=== PATIENT | female | born 1955 | race Caucasian/White ===

== ENCOUNTER → 2023-06-01 09:36 | Outpatient (REF) | payer MEDICARE, OTHER, SELFPAY | LOC: RCS 09:36 | PROVIDERS: ATTENDING PHYSICIAN Internal Medicine Cardiovascular Disease; FAMILY PHYSICIAN Nurse Practitioner Adult Health | DX: Z85.3 Personal history of malignant neoplasm of breast (principal); C56.9 Malignant neoplasm of unspecified ovary; Z01.810 Encounter for preprocedural cardiovascular examination | CPT/HCPCS: 93306; 93356 ==

== ENCOUNTER → 2023-11-05 08:28 | Outpatient (REF) | payer MEDICARE, OTHER, SELFPAY | LOC: WDC 08:28 | PROVIDERS: ATTENDING PHYSICIAN Nurse Practitioner Adult Health | DX: N64.4 Mastodynia (principal); Z98.82 Breast implant status | CPT/HCPCS: 76642 ==

== ENCOUNTER 2023-12-18 18:18 | Inpatient (IN) | payer MEDICARE, OTHER, SELFPAY ==
[2023-12-18] VITALS (10 sets, daily range): BP systolic 95–120; BP diastolic 52–78; BMI 21.1
--- NOTE | 2023-12-18 13:52 | ED.GENMED ---
History of Present Illness
<Alayna Davis PA-C - Last Filed: 12/18/23 19:11>
General
Chief Complaint: Abdominal Symptoms
Source: patient
Exam Limitations: none
Time Seen by Provider: 12/18/23 13:23
Nursing documentation reviewed up to this point in time: agreed with
History of Present Illness
History of Present Illness:
Patient is a 68-year-old female with history of ovarian cancer s/p debulking SHELIA/BSO/partial transverse colectomy/peritoneal stripping, and omentectomy presenting to the emergency department with worsening abdominal pain and concern for infected
incisional site. Patient is 13 days postop from laparoscopic to open adhesiolysis, repair of small bowel perforation, and washout performed in [place] during vacation. Patient was hospitalized for 8 days in [place]. She did return for staple
removal 3 days ago. Patient flew back to [facility] yesterday. Patient states she did have some swelling in her left upper abdomen immediately following procedure which seem to increase in size today and noted that it was red and very tender.
Patient states that she has had night sweats and felt chills. Patient denies any known fever. Patient saw her primary care this morning and was recommended she come to the emergency department.
Patient denies any urinary symptoms. States she is moving her bowels.
Past History
<Alayna Davis PA-C - Last Filed: 12/18/23 19:11>
Past History
ED Past Medical History: Cancer (Breast cancer 2020 (bilateral mastectomy, letrozole). Ovarian cancer 2022 (chemo: Carboplatin, Paclaitaxel, Palonosetron. Surgery to follow)) and Other (seasonal allergies)
ED Past Surgical History: Other (Bilateral mastectomy)
Social History
Tobacco: Non-smoker
Personal:
Living: with family
Review of Systems
<Alayna Davis PA-C - Last Filed: 12/18/23 19:11>
Review of Systems
Allergies reviewed?: Yes
All Other Systems: ROS reviewed and negative except as documented in HPI and ROS
Phy Exam
<Alayna Davis PA-C - Last Filed: 12/18/23 19:11>
Physical Exam
Physical Exam:
Vitals: Mildly tachycardic, temp of 100.1 F
General: Patient is well appearing, no acute distress. Nontoxic-appearing
Skin: Erythema as described below in left upper abdomen. Otherwise soft dry and intact.
Head: Normocephalic, atraumatic
Eyes: Sclera nonicteric. EOMs intact. No nystagmus.
Throat: Protecting airway
Neck: Normal ROM, no cervical spine tenderness, no meningismus
Cardiac: Regular rate and rhythm, no murmurs.
Pulm: Normal respiratory effort, no wheezes, rales, rhonchi heard on exam.
Abdomen: Mildly tender throughout with focal area of tenderness in left upper quadrant with 4 cm X 4 cm area of erythema and fluctuance surrounding laparoscopic incision site. Other abdominal incisions appear clean, dry, intact. No peritoneal
signs or rebound tenderness.
Extremities: No evidence of cyanosis or edema. Great distal pulses
Neuro: Grossly intact.
Psychiatric: Normal affect.
Course
<Alayna Davis PA-C - Last Filed: 12/18/23 19:11>
Orders/Labs/Results
Orders:
Orders
12/18/23 14:00
0.9% Sodium Chloride 1000 ml [Nss] 1,000 ml IV BOLUS
Piperacillin/Tazo 3.375 Gram [Zosyn] 3.375 gram in 50 ml IV NOW
12/18/23 14:01
CT Abd/Pel (IV only)-DH only Urgent
Comment: POD #13 from lap/open SBO repair/ washout
Reason For Exam: LUQ redness/pain/edema around incision, fever
12/18/23 14:15
Basic Metabolic Panel Urgent
Complete Blood Count/With Diff Urgent
Lactic Acid Q4H
Comment: CANCEL 2nd LACTIC ACID IF 1st LACTIC ACID IS LESS THAN 2
Blood Culture Urgent
DAMIÁN Source: Blood/Venous
Specimen Description:
12/18/23 14:24
Blood Culture Urgent
DAMIÁN Source: Blood/Venous
Specimen Description:
12/18/23 14:27
Acetaminophen [Tylenol] 650 mg PO NOW STA
12/18/23 17:46
SURGICAL CONSULT Routine
Consulting Provider: Linus Hopson
Was physician already notified: Yes
Reason for consult: intraabdominal abscess
12/18/23 17:51
Admit/Transfer Patient As Directed
Co-Sign Provider:
Level of Care: Inpatient admission
Assign to:: Medical/Surgical
Physician / Group: Hospitalist
Diagnosis: abdominal abscess
Reason for Hospitalization: abdominal abscess
Expected length of stay greater than two midnights?: Yes
ELOS- Estimated Length of Stay in days: 3
I certify the patient meets the requirements for IP care: Yes
PRN Pain Medication Management As Directed
May give lesser potent ordered pain med per pt: Yes
preference::
Protocol:: Medication orders for pain may be administered in a
manner that supports deferring to patient preference
when the pt is:
- Requesting an ordered lesser potent pain medication.
Least to most potent pain medications are defined
as: acetaminophen < NSAID < tramadol < opioids
(morphine, oxycodone, hydromorphone).
- Requesting a lesser dose of the same medication IF
ORDERED.
- Requesting a less intrusive route of administration
if both routes are prescribed by the provider (PO <
IV).
12/18/23 17:52
Code Status As Directed
Resuscitation Status: Full Code
12/18/23 17:59
[facility] CONSULT Routine
Consulting Provider: Davion Valiente
Was physician already notified: Yes
Reason for Consult/Procedure: abdominal abscess
Acknowledgement that appropriate orders are entered: N/A
Abnormal Lab Results
12/18/23
14:15
RBC 3.06 L 10^6/uL
(4.20-5.40)
Hgb 9.4 L g/dL
(12.0-16.0)
Hct 28.0 L %
(37.0-47.0)
Plt Count 458 H 10^3/uL
(130-400)
Absolute Neuts (auto) 7.3 H 10^3/uL
(1.4-6.5)
Absolute Lymphs (auto) 1.1 L 10^3/uL
(1.2-3.4)
Absolute Monos (auto) 0.8 H 10^3/uL
(0.1-0.6)
Neutrophils % 79.3 H %
(42.2-75.2)
Lymphocytes % 12.0 L %
(20.5-51.1)
Chloride 97 L mmol/L
(98-107)
BUN 21 H mg/dl
(7-17)
Glucose 111 H mg/dl
(70-99)
12/18/23 14:15
12/18/23 14:15
Vital Signs
Temp: 100.1 F
Initial and Last Documented VS:
Initial Vital Signs
Temp Pulse Resp BP Pulse Ox
98.4 F 110 20 120/78 98
12/18/23 12:31 12/18/23 12:31 12/18/23 12:31 12/18/23 12:31 12/18/23 12:31
Last Documented Vital Signs
Temp Pulse Resp BP Pulse Ox
100.1 F 83 26 95/52 96
12/18/23 13:55 12/18/23 18:00 12/18/23 18:00 12/18/23 18:00 12/18/23 18:00
<Dewayne Mcrae MD - Last Filed: 12/18/23 15:01>
Orders/Labs/Results
Orders:
Orders
12/18/23 14:00
0.9% Sodium Chloride 1000 ml [Nss] 1,000 ml IV BOLUS
Piperacillin/Tazo 3.375 Gram [Zosyn] 3.375 gram in 50 ml IV NOW
12/18/23 14:01
CT Abd/Pel (IV only)-DH only Urgent
Comment: POD #13 from lap/open SBO repair/ washout
Reason For Exam: LUQ redness/pain/edema around incision, fever
12/18/23 14:15
Basic Metabolic Panel Urgent
Complete Blood Count/With Diff Urgent
Lactic Acid Q4H
Comment: CANCEL 2nd LACTIC ACID IF 1st LACTIC ACID IS LESS THAN 2
Blood Culture Urgent
DAMIÁN Source: Blood/Venous
Specimen Description:
12/18/23 14:24
Blood Culture Urgent
DAMIÁN Source: Blood/Venous
Specimen Description:
12/18/23 14:27
Acetaminophen [Tylenol] 650 mg PO NOW STA
12/18/23 17:46
SURGICAL CONSULT Routine
Consulting Provider: Linus Hopson
Was physician already notified: Yes
Reason for consult: intraabdominal abscess
12/18/23 17:51
Admit/Transfer Patient As Directed
Co-Sign Provider:
Level of Care: Inpatient admission
Assign to:: Medical/Surgical
Physician / Group: Hospitalist
Diagnosis: abdominal abscess
Reason for Hospitalization: abdominal abscess
Expected length of stay greater than two midnights?: Yes
ELOS- Estimated Length of Stay in days: 3
I certify the patient meets the requirements for IP care: Yes
PRN Pain Medication Management As Directed
May give lesser potent ordered pain med per pt: Yes
preference::
Protocol:: Medication orders for pain may be administered in a
manner that supports deferring to patient preference
when the pt is:
- Requesting an ordered lesser potent pain medication.
Least to most potent pain medications are defined
as: acetaminophen < NSAID < tramadol < opioids
(morphine, oxycodone, hydromorphone).
- Requesting a lesser dose of the same medication IF
ORDERED.
- Requesting a less intrusive route of administration
if both routes are prescribed by the provider (PO <
IV).
12/18/23 17:52
Code Status As Directed
Resuscitation Status: Full Code
12/18/23 17:59
[facility] CONSULT Routine
Consulting Provider: Davion Valiente
Was physician already notified: Yes
Reason for Consult/Procedure: abdominal abscess
Acknowledgement that appropriate orders are entered: N/A
Abnormal Lab Results
12/18/23
14:15
RBC 3.06 L 10^6/uL
(4.20-5.40)
Hgb 9.4 L g/dL
(12.0-16.0)
Hct 28.0 L %
(37.0-47.0)
Plt Count 458 H 10^3/uL
(130-400)
Absolute Neuts (auto) 7.3 H 10^3/uL
(1.4-6.5)
Absolute Lymphs (auto) 1.1 L 10^3/uL
(1.2-3.4)
Absolute Monos (auto) 0.8 H 10^3/uL
(0.1-0.6)
Neutrophils % 79.3 H %
(42.2-75.2)
Lymphocytes % 12.0 L %
(20.5-51.1)
Chloride 97 L mmol/L
(98-107)
BUN 21 H mg/dl
(7-17)
Glucose 111 H mg/dl
(70-99)
12/18/23 14:15
12/18/23 14:15
Vital Signs
Initial and Last Documented VS:
Initial Vital Signs
Temp Pulse Resp BP Pulse Ox
98.4 F 110 20 120/78 98
12/18/23 12:31 12/18/23 12:31 12/18/23 12:31 12/18/23 12:31 12/18/23 12:31
Last Documented Vital Signs
Temp Pulse Resp BP Pulse Ox
100.1 F 83 26 95/52 96
12/18/23 13:55 12/18/23 18:00 12/18/23 18:00 12/18/23 18:00 12/18/23 18:00
<Alayna Davis PA-C - Last Filed: 12/18/23 19:11>
MDM/Problems Addressed
Differential Diagnosis Includes:
Not limited to: Intra-abdominal abscess, cellulitis, infected hematoma,
MDM/Problems Addressed:
Patient is a 68-year-old female with history as documented currently 13 days postop from laparoscopic to open adhesiolysis, repair of small bowel perforation and washout performed at outside hospital in [place] presenting today with worsening
abdominal pain and area of redness and tenderness in left upper abdomen concern for infection. Patient with night sweats and chills at home. Patient moving bowels, no urinary symptoms. Mildly tachycardic on arrival although normalized on my
assessment. She does have a low-grade temp of 100.1 F. Physical exam as above. Patient is conversational and nontoxic-appearing. Cardio/pulmonary assessment unremarkable. Abdomen mildly tender throughout with area of focal tenderness over left
upper quadrant incisional site with erythema and fluctuance. No purulent drainage from incision site. Other incisional sites appear C/D/I. No peritoneal signs. Patient perfusing well. High concern for postoperative infection including
intra-abdominal abscess, infected hematoma, abdominal wall abscess. Will check basic labs, lactic. Will draw blood cultures. Will check CT abdomen/pelvis with IV contrast. Will give fluids, start Zosyn. Will closely monitor and reassess.
Chronic conditions affecting care:
Ovarian cancer
Acute Exacerbation and/or Progression of Chronic Illness:
N/A
<Alayna Davis PA-C - Last Filed: 12/18/23 19:11>
*Radiology
Radiology exam reviewed: preliminary read by ED provider and radiology read reviewed
*Pulse Oximetry
Patient hypoxic: no
*EKG
Interpreted by ED Provider?: NA
*Program Development Manager Interpretation
Rate: normal
Interpretation: normal
Heart Rate: 86
*Critical Care Note
Total Time (30-74mins, 75-104mins- exclusive of procedures): Not Applicable
Data Reviewed
Review of Other/Old Records Reveals: Labs, Records (Records from [place]), Radiology Studies (CT scan performed at [facility]) and Operative Reports (Brief op note from 12/05/2023 for laparoscopic converted open adhesiolysis, small bowel
repair, washout)
<Alayna Davis PA-C - Last Filed: 12/18/23 19:11>
Patient Management
Discussion with other providers: Hospitalist and Cleaner Window (Dr. Hopson-General Surgery)
Escalation/DeEscalation of care consider admission/obs:
Admit for IV antibiotics, possible IR drain placement versus surgical intervention
<TUSHAR Pena Last Filed: 12/18/23 19:11>
Update Note
Update Note:
Update: Labs reviewed. Anemia noted with hemoglobin of 9.4. No leukocytosis. Chemistry without any clinically significant abnormalities. Lactic acid is normal. CT abdomen/pelvis report reviewed which does show a large abnormal fluid collection
suspicious for abscess from the left upper quadrant into the right abdomen. Patient will require admission to the hospital for IV antibiotics and possible surgical versus IR intervention. Did discuss case with general surgery and IR. Dr. Hopson
down at bedside to assess patient�did perform I&D of abscess of left upper quadrant. Plan for possible IR drain placement tonight versus tomorrow and continued IV antibiotics. Patient accepted to hospital service in stable condition. Patient seen
with attending physician.
ED Attending Note
<Alayna Davis PA-C - Last Filed: 12/18/23 19:11>
-
Portions of this chart may have been created with voice recognition software.� Occasional wrong word or��sound alike� substitutions may have occurred due to the inherent limitations of voice recognition software.
<Dewayne Mcrae MD - Last Filed: 12/18/23 15:01>
ED Attending Note
Patient seen and examined by attending physician: Yes
I performed the substantive portion of visit, reviewed & personally made and approve the management plan that is documented in note by myself or CAROLINE.: Yes
ED Attending Note:
Patient is a 68-year-old woman with a recent bowel obstruction in [place] presenting to the emergency department a lump in her abdomen. Patient states that she just came back from [place] yesterday. She was admitted for a bowel obstruction there.
A few days ago she did notice a lump in her abdomen. The surgeons there did evaluated. At that time it was diagnosed as a hematoma given that she was not having any fevers chills or associated redness. Patient states that she flew back and this
morning the area of redness was significant. It is extremely tender and more swollen. It is not draining. Vitals here notable for a temperature of 100.1. Abdominal exam does show about a 4 cm x 4 cm circular fluctuant abscess in the left upper
quadrant with surrounding erythema. No crepitus. Other surgical incisions are clean dry and intact. Concern for intra-abdominal abscess/superficial abscess. Less likely to be necrotizing soft tissue infection at this time. Will check blood work
and CT scan. Will give antibiotics. Anticipate admission if there is a intra-abdominal abscess that will require surgical washout.
Discharge Plan
Departure
Patient Disposition: Admit
Date of Disposition: 12/18/23
Time of Disposition: 17:25
Presentation/result/management discussed w/ accepting MD/DO: Hospitalist
Discharge Problem:
Intra-abdominal abscess
Interventions
Interventions:
*Risk Screen - Suicide Last Done: 12/18/23 12:31
*General Assessment Last Done: 12/18/23 12:31
*Neglect/Abuse Screening Last Done: 12/18/23 12:31
ED- Fall Risk Assessment Last Done: 12/18/23 13:51
*ED COVID-19 Vaccine History Last Done: 12/18/23 15:03
IO-Ziacto-Pcmeeptiki Assessment Last Done: 12/18/23 13:51
ED-Skin Assessment Last Done: 12/18/23 13:51
[2023-12-18 14:29] LABS: % Basophils 0.2 % (0-2); % Eosinophils 0.1 % (0-6); % Immature Granulocytes 0.2 % (0-0.5); % Monocytes 8.2 % (1.7-9.3); % Neutrophils 79.3 % (42.2-75.2); Absolute Lymphocytes 1.1 10^3/uL (1.2-3.4); Absolute Monocytes 0.8 10^3/uL (0.1-0.6); Absolute Neutrophils 7.3 10^3/uL (1.4-6.5); Hemoglobin 9.4 g/dL (12.0-16.0); Mean Corp Hgb Conc. 33.6 g/dL (33.0-37.0); Mean Corpuscular Hgb 30.7 pg (27.0-31.0); Mean Corpuscular Volume 91.5 fL (81.0-99.0); Mean Platelet Volume 9.4 fL (7.4-10.4); Nucleated Red Blood Cells % 0 %; Platelet Count 458 10^3/uL (130-400); Red Blood Cell Count 3.06 10^6/uL (4.20-5.40); Red Cell Dist. Width 12.7 % (11.5-14.5); White Blood Cell Count 9.3 10^3/uL (4.8-10.8)
[2023-12-18] MEDS: TYLENOL 650 MG PO (14:34)
[2023-12-18] MEDS: ZOSYN 50 IV ×2 (14:35→20:26)
[2023-12-18] MEDS: NSS 1000 IV (14:35)
[2023-12-18 14:50] LABS: Lactic Acid 0.8 mmol/L (0.7-2.0)
[2023-12-18 14:58] LABS: Blood Urea Nitrogen 21 mg/dl (7-17); Calcium 9.3 mg/dl (8.4-10.2); Carbon Dioxide 27 mmol/L (22-30); Chloride 97 mmol/L (98-107); Glucose 111 mg/dl (70-99); Sodium 136 mmol/L (135-145); eGFR > 60.00
--- NOTE | 2023-12-18 17:49 | HPS.HSE ---
Family Physician
-
Family Physician: Larissa Paez
Chief Complaint
-
red bulge on L upper abdomen
History of Present Illness
68yo F with PMHx of bilateral mastectomy, Hx of postOP b/l breast abscess after expanders, HLD, anxiety, BSO/SHELIA in June 2023 sent to the hospital by PCP when she pound red bulge on her abdomen . She had surgery in [place] for bowel obstruction [address] showed large intraabdominal abscess.
Medical History
Past Medical History
Past Medical History: Reports Other
Additional Past Medical History:
see HPI
Past Surgical History: Reports Other
Additional Past Surgical History:
See HPI
Social History
Tobacco: Non-smoker
Alcohol: None
Drug: None
Family History
Family History: Not pertinent
Allergies / Home Medications
Allergies reflects when Allergies were last updated in [employer].
Home Medications with original date entered in [employer]
Allergy/Medication List:
Allergies
Allergy/AdvReac Type Severity Reaction Status Date / Time
No Known Drug Allergies Allergy Unknown Verified 12/18/23 12:35
STERI STRIPS Allergy Rash Uncoded 12/18/23 12:35
Home Medications
cholecalciferol (vitamin D3) 25 mcg (1,000 unit) tablet 25 mcg PO QPM Supplement ##0 09/24/20
cyanocobalamin (vitamin B-12) 100 mcg tablet 100 mcg PO TUTHSA Supplement ##0 09/24/20
calcium carbonate (Calcium 600) 600 mg PO QPM 12/18/23
cetirizine 10 mg tablet (Zyrtec) 10 mg PO QPM 12/18/23
ezetimibe 10 mg tablet 10 mg PO QPM 12/18/23
fluticasone propionate 50 mcg/actuation nasal spray,suspension 1 spray intranasal DAILYPRN PRN congestion 12/18/23
letrozole 2.5 mg tablet 2.5 mg PO QPM 12/18/23
pravastatin 10 mg tablet 10 mg PO MOWEFR 12/18/23
therapeutic multivitamin 1 tab PO QPM 12/18/23
Review of Systems
-
History Source: Patient
A 12 point ROS was completed and negative except as noted: Yes
Physical Exam
Vital Signs
Vital Signs
Temp Pulse Resp BP Pulse Ox
100.1 F 86 19 101/55 95
12/18/23 13:55 12/18/23 16:00 12/18/23 16:00 12/18/23 16:00 12/18/23 16:00
Physical Exam
General: Well Developed, Well Nourished and No Apparent Distress
HEENT: NormoCephalic
Respiratory: Clear; No Wheezes, Rales or Rhonchi
Cardiac: S1/S2 and Regular Rhythm
GI: Soft, Non Tender, Non Distended and Other (Red bulge on L upper abdomen)
Musculoskeletal: No Clubbing, No Cyanosis and No Edema
Skin: Warm
Neuro: Awake, Alert, Oriented and AO x 3
Psych: Calm
Laboratory Results
-
12/18/23 14:15
12/18/23 14:15
Laboratory Results
Lactic Acid Cancelled 12/18/23 18:00
Total Bilirubin Cancelled 12/18/23 14:15
AST Cancelled 12/18/23 14:15
ALT Cancelled 12/18/23 14:15
Alkaline Phosphatase Cancelled 12/18/23 14:15
Data Reviewed
-
CT Scan: Report Reviewed by me
Lab Data: Labs Reviewed by me
Impression/Plan
-
A/P:
#postOP abdominal abscess abscess as a complication after recent surgery
#L upper abdominal wall phlegmon
Zosyn
Bcx
NPO until eval by IRAD for abdominal abscess drain
GenSx consult: for I&D of phlegmone and follow Cx
#Anxiety
#Neuropathy
cont home meds
#Anemia, Hx of B12 deficiency
postOP
follow CBC
anemia w/u for deficiencies
#thrombocytosis
reactive follow trend
#chronic transaminitis
known to patient
no cirrhosis on previous tests as per patient
Not tolerating tylenol
DVT ppx on hep
Full code
I have spent at least 58min reviewing chart, test results, communicating with consultants and providing direct patient care
--- NOTE | 2023-12-18 18:26 | CON.GS ---
Consultation
-
Date/Time Consultation Requested: 12/18/2023 5:30 PM
Date/Time Consultation Performed: 12/18/2023 5:30 PM
Requesting Provider: Emergency department
Performing Provider: Dr. Hopson
Reason for Consultation: Intra-abdominal fluid collections
Medical History
-
Chief Complaint: Left upper quadrant pain
History of Present Illness:
This is a 68-year-old female with a history of Breast cancer status post bilateral mastectomy with immediate reconstruction here at [facility]. More recently she was diagnosed with advanced ovarian cancer and had debulking SHELIA/BSO/partial
transverse colectomy/peritoneal stripping, and omentectomy at the [facility] in May 2023. She states that she did not have intra-abdominal chemotherapy at that time but did have 3 rounds of adjuvant chemotherapy after. Her follow-up scans have
shown no residual disease. She was at a wedding in [place] in mid November and shortly thereafter developed a nausea and abdominal pain. She went to a local hospital there where she was diagnosed with small bowel obstruction and looking at the CT
scan read there was some concern for closed-loop obstruction versus volvulus so she was taken to the OR on 12/05/2023 for laparoscopic converted to open exploratory laparotomy lysis of adhesions and primary repair of a iatrogenic small bowel
perforation with 3-0 PDS. The brief op note that I was able to see also mentions some serosal tears that were repaired with 3-0 Vicryl sutures. She was admitted in the hospital there for 8 days before being discharged. She saw her surgeon as an
outpatient and had some of her mario removed in 2 separate sessions. She states that she had a left upper quadrant 'lump' at the site of her laparoscopic incision which her surgeon told her was likely a hematoma and that there was nothing to do.
Overall she was for feeling well other than some right lower quadrant pain which she describes as an occasional 'stitch'. The patient denies Fever, Chest Pain, Shortness Of Breath, Nausea, Vomiting, changes in urinary and bowel habits,
unintentional weight loss. Her main complaint today is that over the past 24 hours her left upper quadrant lump has become very red and extremely tender to palpation. She was seen by her PCP endorsed down and directed to come into the ED for
evaluation.
Past Medical History
Past Medical History: Other (Breast cancer, ovarian cancer)
Past Surgical History: Other (Bilateral mastectomy with implant reconstruction, debulking SHELIA/BSO, peritoneal stripping, partial transverse colectomy.)
Social History
Tobacco: Non-Smoker
Alcohol: None
Drug: None
Personal: Single
Living: Alone
Employment: Employed
Family History
Family History: Reviewed & Not Pertinent
Allergies / Home Medications
Allergy/AdvReac Type Severity Reaction Status Date / Time
No Known Drug Allergies Allergy Unknown Verified 12/18/23 12:35
STERI STRIPS Allergy Rash Uncoded 12/18/23 12:35
�Medication �Instructions �Recorded �Confirmed �Type
cholecalciferol (vitamin D3) 25 25 mcg PO QPM Supplement ##0 09/24/20 12/18/23 History
mcg (1,000 unit) tablet
cyanocobalamin (vitamin B-12) 100 100 mcg PO TUTHSA Supplement ##0 09/24/20 12/18/23 History
mcg tablet
calcium carbonate (Calcium 600) 600 mg PO QPM 12/18/23 12/18/23 History
cetirizine 10 mg tablet (Zyrtec) 10 mg PO QPM 12/18/23 12/18/23 History
ezetimibe 10 mg tablet 10 mg PO QPM 12/18/23 12/18/23 History
fluticasone propionate 50 1 spray intranasal DAILYPRN PRN 12/18/23 12/18/23 History
mcg/actuation nasal congestion
spray,suspension
letrozole 2.5 mg tablet 2.5 mg PO QPM 12/18/23 12/18/23 History
pravastatin 10 mg tablet 10 mg PO MOWEFR 12/18/23 12/18/23 History
therapeutic multivitamin 1 tab PO QPM 12/18/23 12/18/23 History
Review of Systems
-
All other systems: Negative unless noted
A 10 point review of systems was completed, and was negative except as per HPI.
Physical Exam
Vital Signs
Temp Pulse Resp BP Pulse Ox
100.1 F 83 26 95/52 96
12/18/23 13:55 12/18/23 18:00 12/18/23 18:00 12/18/23 18:00 12/18/23 18:00
12/17/23 12/18/23 12/19/23
06:59 06:59 06:59
Actual Weight 54 kg
Lab Results
12/18/23 14:15
12/18/23 14:15
WBC 9.3 10^3/uL (4.8-10.8) 12/18/23 14:15
Hgb 9.4 g/dL (12.0-16.0) L 12/18/23 14:15
Hct 28.0 % (37.0-47.0) L 12/18/23 14:15
Plt Count 458 10^3/uL (130-400) H 12/18/23 14:15
Abs Immat Gran (auto) 0.0 10^3/uL (0-0.05) 12/18/23 14:15
Neutrophils % 79.3 % (42.2-75.2) H 12/18/23 14:15
Physical Exam
General: Well Developed
GI: Soft and Other (Minimally tender to palpation in the right upper, lower and left lower quadrants. She is tender to palpation in the left upper quadrant over her incision. There is a significant amount of erythema and induration around the port
site. The skin is also demarcated with a pen)
Data Reviewed
-
CT Scan: Image Personally Visualized and interpreted, Report Reviewed by me, Discussed with Physician, Discussed with Patient and Discussed with Family
Labs: Labs Reviewed by me, Discussed with Physician, Discussed with Patient and Discussed with Family
Total Time Spent with Patient (in minutes): 50
Assessment / Plan
-
This is a 68-year-old female with a history of breast cancer status postmastectomy and with reconstruction, ovarian cancer status post total abdominal hysterectomy/BSO/peritoneal stripping/partial transverse colectomy, and omentectomy who presented
to an outside hospital in [place] for an SBO and underwent on 12/05/2023 an lap to open for lysis of adhesions, and primary repair of an iatrogenic small bowel injury who presents with what appears to be a left upper quadrant port site infection as
well as to discrete intra-abdominal fluid collections.
My suspicion is that she had a postoperative incisional hematoma that has become infected potentially from an intra-abdominal abscess versus an enteric leak. Thankfully however she is clinically stable and her exam is reassuring.
N.p.o., IV fluids, IV antibiotics
Will perform a bedside incision and drainage of her left upper quadrant incisional abscess (see separate update note)
Follow-up wound cultures
Wound care consult for daily bedside packing changes of her left upper quadrant wound
IR consult for possible percutaneous drainage of the patient's intra-abdominal abscesses
Patient and agreeable to plan of care above. All questions answered.
General surgery will continue to follow.
I spent roughly 80 minutes in total for the care of this patient today including direct patient care and counseling, reviewing labs, imaging, coordination of care, as well as documentation.
--- NOTE | 2023-12-18 18:50 | W.PN.UPDATE ---
Update Note
Progress Note Update
Bedside incision and Drainage
A team time-out was performed confirming the location/laterality of the procedure, consent and allergies reviewed.
Location: Left upper quadrant
Dimensions: 2-1/2 x 0.5 cm x 1.5 cm
Local: 1% Lidocaine
Academic Advisor: RADHA VELASQUEZ
The skin was cleaned with alcohol and anesthetized with 10cc of 1% lidocaine. Her prior incision was incised with an 11 blade and dissection carried down through subcutaneous tissue. The abscess cavity was identified and thoroughly deloculated. The
wound was irrigated with sterile saline. Hemostasis was obtained. There was minimal blood loss. The skin was packed. Wound culture specimens were sent for aerobic and anaerobic. The patient tolerated the procedure well, discharge instructions
reviewed and all questions were answered.
[2023-12-18] MEDS: D5/0.45%NACL 1000 IV (20:25)
[2023-12-18] MEDS: ZETIA 10 MG PO (21:12)
[2023-12-18] MEDS: FEMARA 2.5 MG PO (21:13)
[2023-12-18] MEDS: HEPARIN 5000 UNITS SC (21:14)
--- NOTE | 2023-12-18 22:07 | PTCARENOTE ---
Received pt from ED at 1999. Pt AAOx3, VSS, ambulatory in room. Dressing to abdomen CDI. Pt denies pain at this time. Oriented to room, call banuelos and plan of care.
[2023-12-19] VITALS (10 sets, daily range): BP systolic 78–109; BP diastolic 54–65
[2023-12-19] MEDS: ZOSYN 50 IV ×4 (01:44→19:33)
[2023-12-19] MEDS: MOTRIN 200 MG PO ×3 (01:48→19:02)
[2023-12-19] MEDS: PROTONIX 40 MG PO (08:10)
[2023-12-19] MEDS: HEPARIN SC ×3 (08:14→23:19)
[2023-12-19] MEDS: PRAVACHOL 10 MG PO (08:14)
[2023-12-19 09:28] LABS: % Basophils 0.3 % (0-2); % Eosinophils 0.7 % (0-6); % Immature Granulocytes 0.4 % (0-0.5); % Lymphocytes 15.3 % (20.5-51.1); % Monocytes 9.6 % (1.7-9.3); % Neutrophils 73.7 % (42.2-75.2); Absolute Eosinophils 0.1 10^3/uL (0-0.7); Absolute Monocytes 0.6 10^3/uL (0.1-0.6); Absolute Neutrophils 4.9 10^3/uL (1.4-6.5); Hematocrit 27.9 % (37.0-47.0); Hemoglobin 9.4 g/dL (12.0-16.0); Mean Corp Hgb Conc. 33.7 g/dL (33.0-37.0); Mean Corpuscular Hgb 32.1 pg (27.0-31.0); Mean Corpuscular Volume 95.2 fL (81.0-99.0); Nucleated Red Blood Cells % 0 %; Platelet Count 444 10^3/uL (130-400); Red Blood Cell Count 2.93 10^6/uL (4.20-5.40); Red Cell Dist. Width 12.7 % (11.5-14.5); White Blood Cell Count 6.7 10^3/uL (4.8-10.8)
[2023-12-19 09:43] LABS: INR 1.12; PT 14.4 Sec (11.4-14.6)
[2023-12-19 12:28] LABS: ALT (SGPT) 59 U/L (0-35); AST (SGOT) 38 U/L (14-36); Albumin 3.5 g/dl (3.5-5.0); Alkaline Phosphatase 211 U/L (38-126); Blood Urea Nitrogen 13 mg/dl (7-17); Calcium 9.1 mg/dl (8.4-10.2); Carbon Dioxide 22 mmol/L (22-30); Chloride 102 mmol/L (98-107); Estimated Creatinine Clearance 70 ml/min; Glucose 83 mg/dl (70-99); Iron 36 ug/dl (37-170); Potassium 4.3 mmol/L (3.5-5.1); Sodium 139 mmol/L (135-145); Total Bilirubin 0.4 mg/dl (0.2-1.3); Total Protein 6.5 g/dl (6.3-8.2); eGFR > 60.00
--- NOTE | 2023-12-19 12:29 | CM ---
Patient seen bedside, initial assessment completed. Patient resides with her spouse in a multiple story home, primarily with first floor set up, two steps to enter. Patient denies use of DME, VN, or SNF history. Patient confirms PCP Larissa
Philippe, [facility], does not have prescription coverage. Patient denies any insecurities at home. CM will continue to follow for all discharge planning needs.
Plan; home with , no needs vs VN.
[2023-12-19 12:40] LABS: Percent Saturation 15 % (20-50); Total Iron Binding Capacity 230 ug/dl (265-497)
--- NOTE | 2023-12-19 12:56 | W.PN.HOSP.TC ---
Today's Communication/Plan
-
cont Abx pending wound Cx
XR abd with oral contrast and review by GenSx before starting diet
Assessment / Plan
Assessment / Plan
68yo F with PMHx of bilateral mastectomy, Hx of postOP b/l breast abscess after expanders, HLD, anxiety, BSO/SHELIA in June 2023 sent to the hospital by PCP when she pound red bulge on her abdomen . She had surgery in [place] for bowel obstruction [address] showed large intraabdominal abscess.
A/P:
#postOP abdominal abscess abscess as a complication after recent surgery
#L upper abdominal wall phlegmon
Zosyn
Bcx NTD
NPO until XR abd with omnipaq
IRAD: abdominal abscess drain placed on 12/19/23 - serous fluid
GenSx consult: for I&D of phlegmon and follow Cx
#Anxiety
#Neuropathy
cont home meds
#Anemia, most likely 2/2 acute disease with HOMERO exacerbated by recent Sx
follow CBC
#thrombocytosis
reactive follow trend
#chronic transaminitis
known to patient
no cirrhosis on previous tests as per patient
Not tolerating tylenol
DVT ppx on hep
Full code
I have spent at least 38min reviewing chart, test results, communicating with consultants and providing direct patient care
Anticipated Discharge: > 48 hours
Subjective/Interval History
-
Date of Service: December 19, 2023
Objective Data
-
Labs:
Laboratory Results
12/19/23 12/19/23
07:34 09:21
WBC 6.7
Hgb 9.4 L
Hct 27.9 L
Plt Count 444 H
PT 14.4
INR 1.12
Sodium 139
Potassium 4.3
Chloride 102
Carbon Dioxide 22
BUN 13
Creatinine 0.6
Glucose 83
Calcium 9.1
Total Bilirubin 0.4
AST 38 H
ALT 59 H
Alkaline Phosphatase 211 H
Vital Signs:
Vital Signs
Temp Pulse Resp BP Pulse Ox
98 F 80 20 105/60 97
12/19/23 12:40 12/19/23 12:40 12/19/23 12:40 12/19/23 12:40 12/19/23 12:40
I&O
12/18/23 12/19/23 12/20/23
06:59 06:59 06:59
Intake Total 600 / 600
Balance 600 / 600
Review of Systems
-
All other systems: Reviewed and negative
Constitutional: Reports No Symptoms
Physical Exam
-
General: No Apparent Distress
HEENT: Normocephalic
GI: Soft and Other (MITCH with serous fluid)
Neuro: Awake, Alert, Oriented and AO x 3
Psych: Calm
--- NOTE | 2023-12-19 13:34 | W.PN.UPDATE ---
Update Note
Progress Note Update
US guided abdominal fluid drainage catheter placed, 8 tanzanian. Fluid was highly loculated on US, drained about 10 cc of clear serous fluid. Sent for laboratory analysis.
[2023-12-19 14:10] LABS: Folate > 20.0 ng/ml (2.76-20); Vitamin B12 > 1000 pg/ml (239-931)
--- NOTE | 2023-12-19 15:05 | W.PN.GS2 ---
Today's Communication / Plan
-
IR for drain
ADAT post-procedure
Assessment / Plan
-
68F s/p SHELIA BSO and debulking for ovarian CA with ab wall abscess at lap port site and intra-abdominal fluid collections of unknown etiology
AFVSS, feeling better
No leukocytosis
CT with large intra-abdominal fluid collections of unclear etiology
Plan:
IR for drain to intra-ab collections
Daily packing changes to ab wall I&D site
OK to ADAT after drain procedure
IV abx
DVT ppx
All other care as per primary team
Subjective Data
-
Date of Service: December 19, 2023
AFVSS, feels much better after bedside I&D of ab wall abscess yesterday, denies n/v, denies pain
Objective Data
-
Intake and Output
12/18/23 12/19/23 12/20/23
06:59 06:59 06:59
Intake Total 600 / 600 110 / 110
Balance 600 / 600 110 / 110
Intake:
IV fluids (Total) 500 / 500
IV piggybacks 100 / 100 100 / 100
Amount instilled into Drain (
Total)
Right Abdomen Placed in IR
Other:
Number of approximated MODERATE 1
amounts of urine
Vital Signs
Temp Pulse Resp BP Pulse Ox
97.8 F 82 18 99/61 97
12/19/23 14:31 12/19/23 14:31 12/19/23 14:31 12/19/23 14:31 12/19/23 14:31
Lab Results
12/19/23 07:34
12/19/23 07:34
Calcium 9.1 mg/dl (8.4-10.2) 12/19/23 07:34
Total Bilirubin 0.4 mg/dl (0.2-1.3) 12/19/23 07:34
AST 38 U/L (14-36) H 12/19/23 07:34
ALT 59 U/L (0-35) H 12/19/23 07:34
Alkaline Phosphatase 211 U/L (38-126) H 12/19/23 07:34
Total Protein 6.5 g/dl (6.3-8.2) 12/19/23 07:34
Albumin 3.5 g/dl (3.5-5.0) 12/19/23 07:34
Physical Exam
-
Gen: NAD
Abd: soft, mild ttp about I&D site, no purulence, erythema or foul odor at the site
[2023-12-19] MEDS: FEMARA 2.5 MG PO (17:24)
[2023-12-19] MEDS: ZETIA 10 MG PO (17:24)
[2023-12-19] MEDS: D5/0.45%NACL IV (19:19)
[2023-12-20] MEDS: ZOSYN 50 IV ×4 (01:35→19:28)
[2023-12-20 07:41] VITALS: BP 108/66
[2023-12-20] MEDS: HEPARIN SC ×3 (07:51→23:51)
[2023-12-20] MEDS: PROTONIX 40 MG PO (07:51)
[2023-12-20 08:20] LABS: % Basophils 0.6 % (0-2); % Eosinophils 2.5 % (0-6); % Immature Granulocytes 0.4 % (0-0.5); % Lymphocytes 17.8 % (20.5-51.1); % Monocytes 10.3 % (1.7-9.3); % Neutrophils 68.4 % (42.2-75.2); Absolute Eosinophils 0.1 10^3/uL (0-0.7); Absolute Lymphocytes 0.9 10^3/uL (1.2-3.4); Absolute Monocytes 0.5 10^3/uL (0.1-0.6); Absolute Neutrophils 3.6 10^3/uL (1.4-6.5); Hematocrit 31.1 % (37.0-47.0); Hemoglobin 10.1 g/dL (12.0-16.0); Mean Corp Hgb Conc. 32.5 g/dL (33.0-37.0); Mean Corpuscular Hgb 30.1 pg (27.0-31.0); Mean Corpuscular Volume 92.8 fL (81.0-99.0); Mean Platelet Volume 9.7 fL (7.4-10.4); Nucleated Red Blood Cells % 0 %; Platelet Count 498 10^3/uL (130-400); Red Blood Cell Count 3.35 10^6/uL (4.20-5.40); Red Cell Dist. Width 12.4 % (11.5-14.5); White Blood Cell Count 5.2 10^3/uL (4.8-10.8)
--- NOTE | 2023-12-20 08:38 | W.PN.GS2 ---
Today's Communication / Plan
-
`
Assessment / Plan
-
68F s/p SHELIA BSO and debulking for ovarian CA with ab wall abscess/cellulitis at lap port site and postop intra-abdominal fluid collections
AFVSS
Doing well
No leukocytosis
Cultures are negative for growth to date -only WBCs noted on IR aspiration and I&D site
Plan: Okay for discharge from surgical perspective
Maintain IR drain through the weekend and if cultures remain negative for next week -patient can follow-up with Dr. Hopson/general surgery office for drain removal
Left upper quadrant I&D site -remove packing at next shower then no longer need to pack. Simply cover with Band-Aid or dry gauze dressing
Would cover with oral antibiotic for port site abscess/cellulitis for total course of 10 days (consider Augmentin for more broad-spectrum coverage given recent abdominal surgery)
Subjective Data
-
Date of Service: December 20, 2023
Patient seen and examined
Overall states that she is feeling well
minimal discomfort at drain site and where I&D was performed
Tolerating diet
Bowels moving yesterday
Objective Data
-
Intake and Output
12/19/23 12/20/23 12/21/23
06:59 06:59 06:59
Intake Total 600 / 600 1170 / 1170
Output Total
Balance 600 / 600 1160 / 1160
Intake:
Oral fluids 960 / 960
IV fluids (Total) 500 / 500
IV piggybacks 100 / 100 200 / 200
Amount instilled into Drain (
Total)
Right Abdomen Placed in IR
Output:
Drain Output (Total)
Right Abdomen Placed in IR
Other:
Number of approximated MODERATE 1 2
amounts of urine
Vital Signs
Temp Pulse Resp BP Pulse Ox
97.7 F 75 20 108/66 98
12/20/23 07:41 12/20/23 07:41 12/20/23 07:41 12/20/23 07:41 12/20/23 07:41
Lab Results
12/20/23 07:15
Calcium 9.1 mg/dl (8.4-10.2) 12/19/23 07:34
Total Bilirubin 0.4 mg/dl (0.2-1.3) 12/19/23 07:34
AST 38 U/L (14-36) H 12/19/23 07:34
ALT 59 U/L (0-35) H 12/19/23 07:34
Alkaline Phosphatase 211 U/L (38-126) H 12/19/23 07:34
Total Protein 6.5 g/dl (6.3-8.2) 12/19/23 07:34
Albumin 3.5 g/dl (3.5-5.0) 12/19/23 07:34
Physical Exam
-
NAD AAOx3
ABD: Soft, nondistended, tenderness only localized to I&D site and drain site, no rebound rigidity or guarding
IR drain with straw-colored serous fluid, nonpurulent
I&D site in left upper quadrant with receding erythema, no fluctuance, expected residual induration. Dressing/packing changed.
[2023-12-20 08:46] LABS: ALT (SGPT) 50 U/L (0-35); AST (SGOT) 35 U/L (14-36); Albumin 3.5 g/dl (3.5-5.0); Alkaline Phosphatase 208 U/L (38-126); Blood Urea Nitrogen 13 mg/dl (7-17); Calcium 9.1 mg/dl (8.4-10.2); Carbon Dioxide 24 mmol/L (22-30); Chloride 102 mmol/L (98-107); Estimated Creatinine Clearance 70 ml/min; Glucose 91 mg/dl (70-99); Potassium 4.2 mmol/L (3.5-5.1); Sodium 143 mmol/L (135-145); Total Bilirubin 0.4 mg/dl (0.2-1.3); Total Protein 6.7 g/dl (6.3-8.2); eGFR > 60.00
--- NOTE | 2023-12-20 09:06 | WOUNDNOTE ---
MAGDA RN NOTE: Confirmed with Dr. Putnam who saw patient today that wound consult not needed. Updated discharge instructions with wound care per surgeon, teaching done by Dr. Putnam. Patient to follow up with Surgical group upon discharge.
--- NOTE | 2023-12-20 10:09 | W.PN.HOSP.TC ---
Today's Communication/Plan
-
PAtient significantly improved, pain decreased, feeling better - cont Zosyn pending final Cx
Assessment / Plan
Assessment / Plan
68yo F with PMHx of bilateral mastectomy, Hx of postOP b/l breast abscess after expanders, HLD, anxiety, BSO/SHELIA in June 2023 sent to the hospital by PCP when she pound red bulge on her abdomen . She had surgery in [place] for bowel obstruction [address] showed large intraabdominal abscess.
A/P:
#postOP abdominal abscess abscess as a complication after recent surgery
#L upper abdominal wall phlegmon with cellulitis
Zosyn continue until final Cx resulted.
Bcx NTD
IRAD: abdominal abscess drain placed on 12/19/23 - serous fluid
GenSx consult: for I&D of phlegmon and follow Cx
#Anxiety
#Neuropathy
cont home meds
#Anemia, most likely 2/2 acute disease with HOMERO exacerbated by recent Sx
follow CBC
#thrombocytosis
reactive follow trend
#chronic transaminitis
known to patient
no cirrhosis on previous tests as per patient
Not tolerating tylenol
DVT ppx on hep
Full code
I have spent at least 38min reviewing chart, test results, communicating with consultants and providing direct patient care
Anticipated Discharge: 24 - 48 hours
Subjective/Interval History
-
Date of Service: December 20, 2023
Objective Data
-
Labs:
Laboratory Results
12/20/23
07:15
WBC 5.2
Hgb 10.1 L
Hct 31.1 L
Plt Count 498 H
Sodium 143
Potassium 4.2
Chloride 102
Carbon Dioxide 24
BUN 13
Creatinine 0.6
Glucose 91
Calcium 9.1
Total Bilirubin 0.4
AST 35
ALT 50 H
Alkaline Phosphatase 208 H
Vital Signs:
Vital Signs
Temp Pulse Resp BP Pulse Ox
97.7 F 75 20 108/66 98
12/20/23 07:41 12/20/23 07:41 12/20/23 07:41 12/20/23 07:41 12/20/23 07:41
I&O
12/19/23 12/20/23 12/21/23
06:59 06:59 06:59
Intake Total 600 / 600 1170 / 1170
Output Total
Balance 600 / 600 1160 / 1160
Review of Systems
-
History Source: Patient
All other systems: Reviewed and negative
Physical Exam
-
General: No Apparent Distress
HEENT: Normocephalic
Respiratory: Clear to Auscultation
Cardiac: Regular Rhythm
GI: Soft, Nontender, Nondistended and Other (MITCH with clear yellowish fluid)
Musculoskeletal: No Clubbing, No Cyanosis and No Edema
Skin: Other (redness of L upper abdomen)
Neuro: Awake, Alert, Oriented and AO x 3
Psych: Calm
--- NOTE | 2023-12-20 12:01 | CM ---
Patient seen bedside with spouse.
Patient with abdominal wound.
Wound care following.
Continues on IV anbx.
Plan: home, watch for possible HC needs.
[2023-12-20] MEDS: HEPARIN 5000 UNITS SC (15:00)
[2023-12-20 15:02] VITALS: BP 94/58
[2023-12-20] MEDS: FEMARA 2.5 MG PO (17:09)
[2023-12-20] MEDS: ZETIA 10 MG PO (17:10)
[2023-12-20 20:21] LABS: Hepatitis B Surface Antigen Negative (Negative)
[2023-12-20 20:40] LABS: Hepatitis B Core Ab, Total Negative (Negative); Hepatitis B Surface Antibody Negative; Hepatitis C Antibody Negative (Negative)
[2023-12-20] MEDS: MOTRIN 200 MG PO (22:44)
[2023-12-20 23:06] VITALS: BP 94/58
[2023-12-21] MEDS: ZOSYN 50 IV ×2 (02:10→07:35)
[2023-12-21] MEDS: PROTONIX 40 MG PO (07:34)
[2023-12-21] MEDS: PRAVACHOL 10 MG PO (07:34)
[2023-12-21] MEDS: HEPARIN 5000 UNITS SC (07:35)
[2023-12-21 08:02] VITALS: BP 129/66
[2023-12-21 08:45] LABS: % Basophils 0.4 % (0-2); % Eosinophils 1.8 % (0-6); % Immature Granulocytes 0.2 % (0-0.5); % Lymphocytes 24.6 % (20.5-51.1); % Monocytes 11.4 % (1.7-9.3); % Neutrophils 61.6 % (42.2-75.2); Absolute Eosinophils 0.1 10^3/uL (0-0.7); Absolute Lymphocytes 1.4 10^3/uL (1.2-3.4); Absolute Monocytes 0.6 10^3/uL (0.1-0.6); Absolute Neutrophils 3.4 10^3/uL (1.4-6.5); Hematocrit 34.1 % (37.0-47.0); Hemoglobin 11.5 g/dL (12.0-16.0); Mean Corp Hgb Conc. 33.7 g/dL (33.0-37.0); Mean Corpuscular Hgb 31.3 pg (27.0-31.0); Mean Corpuscular Volume 92.9 fL (81.0-99.0); Mean Platelet Volume 9.9 fL (7.4-10.4); Nucleated Red Blood Cells % 0 %; Platelet Count 523 10^3/uL (130-400); Red Blood Cell Count 3.67 10^6/uL (4.20-5.40); Red Cell Dist. Width 12.2 % (11.5-14.5); White Blood Cell Count 5.5 10^3/uL (4.8-10.8)
--- NOTE | 2023-12-21 09:18 | W.PN.GS2 ---
Addendum entered and electronically signed by Linus Hopson MD 12/21/23 10:14:
I saw and examined the patient independently.
The resident's note was reviewed and I agree with the note, assessment and plan except where noted below.
Comment:
Cultures no growth to date.
Okay for discharge from a surgical perspective.
Will need drain and wound care teaching. May need VNA set up.
Antibiotics d2/10
General surgery will sign off
Original Note:
Today's Communication / Plan
-
Cleared for Discharge from surgery perspective, follow up with Dr. Bender in 1week
Assessment / Plan
-
68F s/p SHELIA BSO and debulking for ovarian CA with ab wall abscess/cellulitis at lap port site and postop intra-abdominal fluid collections
Plan:
#IR Drain for Intraabdominal fluid collection
- Blood Cx NGTD, Wound Cx NGTD, WBC wnl, afebrile
- OK from surgical perspective to discharge with drain removal in office after the weekend
- F/u Dr. Bender next week
#Left upper quadrant port site abscess s/p I&D
- Changed packing today, continue packing per instructions and follow up OP with Dr. Bender
- Recommending 10d course PO Abx (Augmentin) for port site abscess
Subjective Data
-
No acute events overnight. Feeling well. No new abdominal pain, n/v, fevers or chills.
Objective Data
-
Intake and Output
12/20/23 12/21/23 12/22/23
06:59 06:59 06:59
Intake Total 1170 / 1170 1080 / 1080
Output Total 40 / 40
Balance 1160 / 1160 1040 / 1040
Intake:
Oral fluids 960 / 960 1080 / 1080
IV piggybacks 200 / 200
Amount instilled into Drain (
Total)
Right Abdomen Placed in IR
Output:
Drain Output (Total)
Right Abdomen Placed in IR
Other:
Number of approximated MODERATE 2 2
amounts of urine
Vital Signs
Temp Pulse Resp BP Pulse Ox
97.6 F 71 19 129/66 97
12/21/23 08:02 12/21/23 08:02 12/21/23 08:02 12/21/23 08:02 12/21/23 08:02
Lab Results
12/21/23 07:25
12/20/23 07:15
Calcium 9.1 mg/dl (8.4-10.2) 12/20/23 07:15
Total Bilirubin 0.4 mg/dl (0.2-1.3) 12/20/23 07:15
AST 35 U/L (14-36) 12/20/23 07:15
ALT 50 U/L (0-35) H 12/20/23 07:15
Alkaline Phosphatase 208 U/L (38-126) H 12/20/23 07:15
Total Protein 6.7 g/dl (6.3-8.2) 12/20/23 07:15
Albumin 3.5 g/dl (3.5-5.0) 12/20/23 07:15
Physical Exam
-
General: NAD.
Abdominal: Soft nondistended. MITCH drain output 20cc of serous fluid in 24 hours. RUQ I&D erythema much improved, mildly indurated & tender to palpation. No active pus or drainage.
--- NOTE | 2023-12-21 11:26 | W.PN.HOSP.TC ---
Today's Communication/Plan
-
dc
Assessment / Plan
Assessment / Plan
68yo F with PMHx of bilateral mastectomy, Hx of postOP b/l breast abscess after expanders, HLD, anxiety, BSO/SHELIA in June 2023 sent to the hospital by PCP when she pound red bulge on her abdomen . She had surgery in [place] for bowel obstruction [address] showed large intraabdominal abscess. GenSx provided bedside drain of phlegmon, Abx were started. Nexd day IRAD placed MITCH drain into intraabd abscess that drained clear fluid. Wound Cx showed no organism on gram stain and no preliminary
growth. As per agreement with GenSx - patient is medically stable to be started on oral Augmentin for cellulitis of the skin around phlegmon, and for outpatient follow up with GenSx for MITCH drain removal week after.
A/P:
#postOP abdominal abscess abscess as a complication after recent surgery
#L upper abdominal wall phlegmon with cellulitis
Zosyn continue until final Cx resulted.
Bcx NTD
IRAD: abdominal abscess drain placed on 12/19/23 - serous fluid
GenSx consult: for I&D of phlegmon and follow Cx
#Anxiety
#Neuropathy
cont home meds
#Anemia, most likely 2/2 acute disease with HOMERO exacerbated by recent Sx
follow CBC
#thrombocytosis
reactive follow trend
#chronic transaminitis
known to patient
no cirrhosis on previous tests as per patient
Not tolerating tylenol
DVT ppx on hep
Full code
I have spent at least 38min reviewing chart, test results, communicating with consultants and providing direct patient care
Anticipated Discharge: Today
Subjective/Interval History
-
Date of Service: December 21, 2023
Objective Data
-
Labs:
Laboratory Results
12/21/23
07:25
WBC 5.5
Hgb 11.5 L
Hct 34.1 L
Plt Count 523 H
Vital Signs:
Vital Signs
Temp Pulse Resp BP Pulse Ox
97.6 F 71 19 129/66 97
12/21/23 08:02 12/21/23 08:02 12/21/23 08:02 12/21/23 08:02 12/21/23 08:02
I&O
12/20/23 12/21/23 12/22/23
06:59 06:59 06:59
Intake Total 1170 / 1170 1080 / 1080
Output Total 40
Balance 1160 / 1160 1040 / 1040
Review of Systems
-
History Source: Patient
All other systems: Reviewed and negative
Physical Exam
-
HEENT: Normocephalic
Respiratory: Clear to Auscultation
GI: Soft, Nontender, Nondistended and Other (MITCH with clear fluid)
Rectal: Brown
Genito-urinary: No Costovertebral Tender
Musculoskeletal: No Clubbing, No Cyanosis and No Edema
Neuro: Awake, Alert, Oriented and AO x 3
Psych: Calm
--- NOTE | 2023-12-21 11:32 | W.DCSUMMARY ---
Discharge Summary
Discharge Data
Date of Admission: 12/18/23
Date of Discharge: 12/21/23
-
Pending Results: No
Hospital Course
68yo F with PMHx of bilateral mastectomy, Hx of postOP b/l breast abscess after expanders, HLD, anxiety, BSO/SHELIA in June 2023 sent to the hospital by PCP when she pound red bulge on her abdomen . She had surgery in [place] for bowel obstruction [address] showed large intraabdominal abscess. [facility] provided bedside drain of phlegmon, Abx were started. Nexd day IRAD placed MITCH drain into intraabd abscess that drained clear fluid. Wound Cx showed no organism on gram stain and no preliminary
growth. As per agreement with [facility] - patient is medically stable to be started on oral Augmentin for cellulitis of the skin around phlegmon, and for outpatient follow up with [facility] for MITCH drain removal week after.
I have spent at least 39min discharging the patient
A/P:
#postOP abdominal abscess abscess as a complication after recent surgery
#L upper abdominal wall phlegmon with cellulitis
#Anxiety
#Neuropathy
#Anemia, most likely 2/2 acute disease with HOMERO exacerbated by recent Sx
#thrombocytosis
#chronic transaminitis
Discharge Plan
-
Patient Disposition: Home (Routine Discharge)
Diet: Regular
Activity: No restrictions
Driving Restrictions: As prior to admission
Activity Restrictions/Additional Instructions:
Wound Care Instructions
Can shower at home, pull packing out in shower and cover with gauze change daily and as needed for drainage.
DRAIN CARE INSTRUCTIONS
General Information:
Drains help to keep fluid from collecting by removing the extra blood and fluid from under the skin. A drain is temporary. It stays in place until the drainage has slowed down or stopped. Your doctor or nurse will decide when each drain should be
removed: This is usually after each drain has 30cc or less in 24 hours for 2 days in a row. When this happens, you should call the [facility] to schedule an appointment with the nurses to have it/them removed. This is usually not painful
and only takes a few seconds.
How do I care for the drains at home?
Pin your drains to your clothing by using a safety pin through the plastic loop on the top of the bulb. If the drain is not attached to your clothing, it may pull out from under your skin. Also, a drain usually feels more comfortable when it�s
attached. To care for the drain at home, you will have to empty the drain, ``strip�� the drain tubing, and change the dressing if applicable. See the following pages for instructions on how to do this.
What problems may I have with my drain?
� The bulb is not compressed- The bulb may not be squeezed tightly enough, the plug may not be closed securely, or the tube has slipped out a bit and is leaking. Follow the instructions on how to empty the drain.
If the bulb remains expanded, then notify your doctor or nurse during business hours.
� No drainage or sudden decrease in amount of drainage- This is usually due to clots in the drain. Follow the instructions on how to strip the drain tubing.
� The tube accidentally falls out- If this happens, place a dry gauze dressing over the drain site and notify your doctor or nurse during business hours.
� Increased redness, swelling, or heat around the tube insertion site- This may be a sign of infection. Take your temperature: if it is higher than 101F or 38.8C, call your doctor or nurse immediately. Otherwise, notify your doctor or nurse during
business hours and keep the dressing clean and dry.
Post-Surgical Drain Care:
After surgery, you will have one or two drains, called a Jose-Seo (MITCH) drain, placed near the incision. This device collects fluid, under suction, from your surgical area. The drain promotes healing and recovery, and reduces the chance of
infection. The drain will be in place until the drainage slows enough for your body to reabsorb fluid on its own. While you are hospitalized the nursing staff will care for the drain and teach you to continue to do so at home.
How to Empty Your MITCH Drain
Note: Wash your hands thoroughly before emptying your drain(s).
� Have the plastic measuring cup from the hospital ready to collect and measure the drainage. Please measure the output at the same two times every 24 hours and record the amount.
� Unpin the drain from your clothing.
Open the top of the drain. Turn the drain upside down and squeeze the contents of the bulb into the measuring cup. Be sure to empty the bulb as completely as possible. Flush the contents in the toilet.
� Use the drain output log chart to record the amount of drainage twice a day or any time the bulb is full. Record the total for 24 hours for each drain you have.
� If you have more than one drain, remember to record the drainage from each drain separately.
� To prevent infection, do not let the stopper or top of the bottle touch the measuring cup or any other surface.
� Use one hand to squeeze all of the air from the drain. With the drain still squeezed, use your other hand to replace the top. This creates the suction necessary to remove the fluids from your body.
� Pin the drain back on your clothing to avoid pulling it out accidently.
� Wash your hands again. Remember to wash your hands before and after the procedure to reduce the risk of infection.
Stripping the Tube
Often the tube may become blocked with products of healing or clot. If you do not have drainage, then:
� Hold the tube near where it is inserted in to the skin with your one hand.
� Use the other hand to hold a pencil and gently squeeze the tubing with the pencil while moving it down toward the drain away from your skin. This forces the more sold material into the bulb for better drainage.
� Repeat as necessary to start the draining again.
Removal of the Tube
� The tube may be removed once a single tube output is less than 30cc (1 oz.) for 24 hours. Please call the office to arrange a time to come in to have the drain removed.
� Please call the office [phone] if the output becomes thicker or has a bad odor or if you have any questions or concerns
Please also call the office to schedule a follow-up appointment for early next week.
Referrals:
Larissa Paez CRNP [Family Provider] -
Linus Hopson MD [Active] - (Please follow-up with Dr. Hopson's office to confirm IR drain cultures are negative and timing of removal of IR drain that was placed in the hospital.)
Prescriptions:
New
amoxicillin-pot clavulanate 875-125 mg tablet
1 tab PO Q12H Qty: 14 0RF
Continued
cyanocobalamin (vitamin B-12) 100 mcg Tablet
100 mcg PO TUTHSA Qty: 0
cholecalciferol (vitamin D3) 25 mcg (1,000 unit) Tablet
25 mcg PO QPM Qty: 0
cetirizine [Zyrtec] 10 mg Tablet
10 mg PO QPM
therapeutic multivitamin Tablet
1 tab PO QPM
calcium carbonate [Calcium 600] 600 mg calcium (1,500 mg) Tablet
600 mg PO QPM
pravastatin 10 mg tablet
10 mg PO MOWEFR
letrozole 2.5 mg tablet
2.5 mg PO QPM
fluticasone propionate 50 mcg/actuation [place],Suspension
1 spray INTRANASAL DAILYPRN PRN (Reason: congestion)
ezetimibe 10 mg tablet
10 mg PO QPM
Discharge Orders:
Discharge Patient (As Directed); Ordered 12/21/23
Ordered By: Aniceto Huang
Discharge Date and Time
Print Language: CITIZEN OF [place]
--- NOTE | 2023-12-21 11:35 | CM ---
Patient seen bedside.
Patient OOB in chair, denies home care needs.
Spouse will assist with dressing change.
IMM completed.
Spouse will transport home.
Plan: home no needs.
== END 2023-12-21 12:57 | disposition home or self-care (01) | DRG 862 ==
LOC: 4 WEST ACU 18:18
PROVIDERS: Physician Assistant; Radiology Vascular & Interventional Radiology; ADMITTING PHYSICIAN Internal Medicine; CONSULT PHYSICIAN Surgery; EMERGENCY PHYSICIAN Student in an Organized Health Care Education/Training Program; FAMILY PHYSICIAN Nurse Practitioner Adult Health
PROC: 0J980ZZ Drainage of Abdomen Subcutaneous Tissue and Fascia, Open Approach (ICD-10-PCS; 2023-12-18)
PROC: 0W9G30Z Drainage of Peritoneal Cavity with Drainage Device, Percutaneous Approach (ICD-10-PCS; 2023-12-19)
DX: T81.43XA Infection following a procedure, organ and space surgical site, initial encounter (principal); K65.1 Peritoneal abscess; L02.211 Cutaneous abscess of abdominal wall; L03.311 Cellulitis of abdominal wall; T81.41XA Infection following a procedure, superficial incisional surgical site, initial encounter; F41.9 Anxiety disorder, unspecified; G62.9 Polyneuropathy, unspecified; D64.9 Anemia, unspecified; D75.839 Thrombocytosis, unspecified; E78.5 Hyperlipidemia, unspecified; R74.01 Elevation of levels of liver transaminase levels; Z90.710 Acquired absence of both cervix and uterus; Z90.13 Acquired absence of bilateral breasts and nipples; Z85.43 Personal history of malignant neoplasm of ovary; Z85.3 Personal history of malignant neoplasm of breast; Y83.8 Other surgical procedures as the cause of abnormal reaction of the patient, or of later complication, without mention of misadventure at the time of the procedure
CPT/HCPCS: 49406; 74177; 80048; 80053; 82607; 82728; 82746; 83540; 83550; 83605; 85025; 85610; 86704; 86706; 86803; 87015; 87040; 87070; 87205; 87340; 96361; 96374; 99152; 99153; 99285; C1729; C1769; Q9967

== ENCOUNTER → 2024-05-07 13:53 | Outpatient (REF) | payer MEDICARE, OTHER, SELFPAY | LOC: WDC 13:53 | PROVIDERS: ATTENDING PHYSICIAN Nurse Practitioner Adult Health | DX: R92.8 Other abnormal and inconclusive findings on diagnostic imaging of breast (principal) | CPT/HCPCS: 76642 ==

== ENCOUNTER 2024-08-16 17:03 | Emergency (ER) | payer MEDICARE, OTHER, SELFPAY ==
[2024-08-16 17:04] VITALS: BP 122/68
--- NOTE | 2024-08-16 18:34 | ED.GENMED ---
History of Present Illness
General
Chief Complaint: Skin Problem
Source: patient
Exam Limitations: none
Time Seen by Provider: 08/16/24 17:40
Nursing documentation reviewed up to this point in time: agreed with
History of Present Illness
History of Present Illness:
The patient is a very pleasant 69-year-old female who is undergoing IV chemotherapy for ovarian cancer. Patient had 2 different chemotherapies infused in an IV of her right hand yesterday at the [facility]. Patient reports that since then, the IV
site is slightly warm and red to the touch. Patient is concerned about a possible infection or blood clot to the area. Patient denies fevers and chills. She denies nausea and vomiting. The redness and swelling is contained to the top of her
right hand and does not extend to the wrist or forearm. Patient reports minimal soreness to the area of redness where the IV site was.
Past History
Past History
ED Past Medical History: Cancer (Breast cancer 2020 (bilateral mastectomy, letrozole). Ovarian cancer 2022 (chemo: Carboplatin, Paclaitaxel, Palonosetron. Surgery to follow)) and Other (seasonal allergies)
ED Past Surgical History: Other (Bilateral mastectomy)
Social History
Tobacco: Non-smoker
Alcohol: Other
Drug: None
Personal:
Living: with family
Employment: Other
Family History
Family History: Other
Review of Systems
Review of Systems
Allergies reviewed?: Yes
All Other Systems: ROS reviewed and negative except as documented in HPI and ROS
Constitutional: Reports no symptoms
EENT: Reports no symptoms
Respiratory: Reports no symptoms
Cardiac: Reports no symptoms
ABD/GI: Reports no symptoms
: Reports no symptoms
Musculoskeletal: Reports no symptoms
Skin: Reports other
Neurological: Reports no symptoms
Endocrine: Reports no symptoms
Hematologic/Lymphatic: Reports no symptoms
Psychiatric: Reports no symptoms
Phy Exam
Physical Exam
Physical Exam:
Physical Exam
General: no apparent distress, not acutely ill
Neck: supple.
Heart: s1/s2 regular rate and rhythm, no murmur. equal radial pulses.
Lungs: no acute respiratory distress. clear bilaterally
Abdomen: Soft, nontender
Neuro: alert and oriented. no focal neurological deficits. 5 out of 5 strength and equal sensation in bilateral upper extremities
Skin: Very mild localized erythema and slight ecchymoses of dorsal aspect of right hand. No sign of lymphangitis. No extension to wrist or forearm. Hand is soft without crepitus or any obvious swelling
Psychiatric: well kept. interactive and cooperative
Extremities: no edema. no calf tenderness. negative homans. good distal pulses
Course
Orders/Labs/Results
Orders:
Orders
08/16/24 18:05
US Periph Venous UPPER Ext RT Urgent
Comment:
Reason For Exam: right hand swellling after IV
08/16/24 19:26
Cephalexin Monohydrate [Keflex] 500 mg PO NOW STA
Vital Signs
Initial and Last Documented VS:
Initial Vital Signs
Temp Pulse Resp BP Pulse Ox
97.8 F 67 16 122/68 99
08/16/24 17:04 08/16/24 17:04 08/16/24 17:04 08/16/24 17:04 08/16/24 17:04
Last Documented Vital Signs
Temp Pulse Resp BP Pulse Ox
98 F 67 20 122/73 99
08/16/24 19:09 08/16/24 19:09 08/16/24 19:09 08/16/24 19:09 08/16/24 19:09
MDM/Problems Addressed
Differential Diagnosis Includes:
Ecchymoses over right hand due to IV placement yesterday, extravasation of medicine in soft tissue of right hand, cellulitis of right hand
MDM/Problems Addressed:
Patient presents with acute redness and pain over the area of IV site of right hand
Chronic conditions affecting care:
Patient could be immunocompromise due to chemotherapy
*Radiology
Radiology exam reviewed: radiology read reviewed
*Pulse Oximetry
Patient hypoxic: no
*EKG
Interpreted by ED Provider?: NA
*Bullard Operator Interpretation
Rate: Bullard Operator- N/A
*Critical Care Note
Total Time (30-74mins, 75-104mins- exclusive of procedures): Not Applicable
Update Note
Update Note:
There is no sign of deep space infection or gangrene of patient's hand. There is no sign of tenosynovitis or lymphangitis. Given that there is slight warmth and red around the IV site, decision made to start patient on Keflex
ED Attending Note
-
Portions of this chart may have been created with voice recognition software.� Occasional wrong word or��sound alike� substitutions may have occurred due to the inherent limitations of voice recognition software.
Discharge Plan
Departure
Patient Disposition: Home (Routine Discharge)
Date of Disposition: 08/16/24
Time of Disposition: 19:26
Patient with high blood pressure during this ER visit?: No
Condition: Good
Covid-19: Not Applicable
Discharge Problem:
Cellulitis of hand, right
Instructions: Cellulitis (Skin Infection), Adult (DC)
Prescriptions:
New
cephalexin 500 mg capsule
500 mg PO BID Qty: 13 0RF
No Action
cyanocobalamin (vitamin B-12) 100 mcg Tablet
100 mcg PO TUTHSA Qty: 0
cholecalciferol (vitamin D3) 25 mcg (1,000 unit) Tablet
25 mcg PO QPM Qty: 0
cetirizine [Zyrtec] 10 mg Tablet
10 mg PO QPM
therapeutic multivitamin Tablet
1 tab PO QPM
calcium carbonate [Calcium 600] 600 mg calcium (1,500 mg) Tablet
600 mg PO QPM
pravastatin 10 mg tablet
10 mg PO MOWEFR
letrozole 2.5 mg tablet
2.5 mg PO QPM
fluticasone propionate 50 mcg/actuation [place],Suspension
1 spray INTRANASAL DAILYPRN PRN (Reason: congestion)
ezetimibe 10 mg tablet
10 mg PO QPM
amoxicillin-pot clavulanate 875-125 mg tablet
1 tab PO Q12H Qty: 14 0RF
Referrals:
Larissa Paez CRNP [Family Provider, General]
Interventions
Interventions:
*Risk Screen - Suicide Last Done: 08/16/24 19:09
*General Assessment Last Done: 08/16/24 19:09
*Neglect/Abuse Screening Last Done: 08/16/24 19:09
*ED- Fall Risk Assessment Last Done: 08/16/24 19:09
*ED COVID-19 Vaccine History Last Done: 08/16/24 19:09
ED-Skin Assessment Last Done: 08/16/24 19:09
Discharge Date and Time
Print Language: NEPALESE
[2024-08-16 19:09] VITALS: BP 122/73
[2024-08-16] MEDS: KEFLEX 500 MG PO (19:34)
== END 2024-08-16 19:40 | disposition home or self-care (01) ==
LOC: EMR 17:03
PROVIDERS: EMERGENCY PHYSICIAN Emergency Medicine; FAMILY PHYSICIAN Nurse Practitioner Adult Health
DX: L03.113 Cellulitis of right upper limb (principal); R22.31 Localized swelling, mass and lump, right upper limb; C56.9 Malignant neoplasm of unspecified ovary; Z85.3 Personal history of malignant neoplasm of breast
CPT/HCPCS: 99284; 93971

== ENCOUNTER → 2024-12-03 13:38 | Outpatient (REF) | payer MEDICARE, OTHER, SELFPAY | LOC: RCS 13:38 | PROVIDERS: ATTENDING PHYSICIAN Nurse Practitioner; FAMILY PHYSICIAN Nurse Practitioner Adult Health | DX: C56.9 Malignant neoplasm of unspecified ovary (principal) | CPT/HCPCS: 93306; 93356 ==

== ENCOUNTER 2025-01-08 05:29 | Emergency (ER) | payer MEDICARE, OTHER, SELFPAY ==
[2025-01-08 05:32] VITALS: BP 120/85
[2025-01-08 06:12] VITALS: BP 117/64
--- NOTE | 2025-01-08 06:15 | ED.GENMED ---
History of Present Illness
General
Chief Complaint: Nose Bleed
Source: patient
Exam Limitations: none
Time Seen by Provider: 01/08/25 05:57
History of Present Illness
History of Present Illness:
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 Currently on chemotherapy for ovarian CA. No other abnormal bleeding. No fever chills or other complaints
Past History
Past History
ED Past Medical History: Cancer (Breast cancer 2020 (bilateral mastectomy, letrozole). Ovarian cancer 2022 (chemo: Carboplatin, Paclaitaxel, Palonosetron. Surgery to follow)) and Other (seasonal allergies)
ED Past Surgical History: Other (Bilateral mastectomy)
Social History
Tobacco: Non-smoker
Alcohol: Other
Drug: None
Personal:
Living: with family
Employment: Other
Family History
Family History: Other
Review of Systems
Review of Systems
All Other Systems: Not applicable
Constitutional: Denies fever
Phy Exam
Physical Exam
Physical Exam:
GENERAL: Alert and oriented in no apparent distress
EYE: Orbits normal.
NECK: Supple
ENT: Pharynx without erythema. No posterior blood. Pincher in place over the nares. Appears to have likely source of the right septum. There is areas of superficial pimple appearance focal of a superficial vein and a small amount of blood along
the septum.
LUNGS: No distress
NEUROLOGICAL: Alert and oriented , grossly non-focal
SKIN: Warm and dry, no unusual bruising
PSYCH: Normal and appropriate interaction.
Course
Orders/Labs/Results
Orders:
Orders
01/08/25 06:05
Complete Blood Count/With Diff Urgent
Manual Differential Urgent
01/08/25 06:54
Add On- LAB Urgent
Tests Added?: manual diff
Abnormal Lab Results
01/08/25
06:05
WBC 1.7 L* 10^3/uL
(4.8-10.8)
RBC 3.62 L 10^6/uL
(4.20-5.40)
Hct 36.5 L %
(37.0-47.0)
MCV 100.8 H fL
(81.0-99.0)
MCH 33.4 H pg
(27.0-31.0)
Abs Neuts (Manual) 0.2 L* 10^3/uL
(1.4-6.5)
Segmented Neutrophils 15 L %
(42-75)
Lymphocytes (Manual) 77 H %
(20-51)
01/08/25 06:05
Vital Signs
Initial and Last Documented VS:
Initial Vital Signs
Temp Pulse Resp BP Pulse Ox
97.9 F 104 20 120/85 96
01/08/25 05:32 01/08/25 05:32 01/08/25 05:32 01/08/25 05:32 01/08/25 05:32
Last Documented Vital Signs
Temp Pulse Resp BP Pulse Ox
97.9 F 74 20 117/64 97
01/08/25 05:32 01/08/25 06:12 01/08/25 05:32 01/08/25 06:12 01/08/25 06:21
Procedures
Nosebleed
Drug treatment: Epinephrine
Treatment: Silver nitrate cautery
Post treatment bleeding: none- good control
MDM/Problems Addressed
Differential Diagnosis Includes:
Epistaxis likely right nares. Currently not bleeding. Trying to avoid packing secondary to her leukopenia. Area cauterized. Will observe.
*Pulse Oximetry
SaO2: 97
Oxygen Mode of Delivery: Room air
Patient hypoxic: no (97)
*Critical Care Note
Total Time (30-74mins, 75-104mins- exclusive of procedures): Not Applicable
Update Note
Update Note:
Recheck no bleeding. Medically stable. Platelets reasonable. Patient and will follow-up white count. Patient aware of her low ANC. Will follow-up
ED Attending Note
-
Portions of this chart may have been created with voice recognition software.� Occasional wrong word or��sound alike� substitutions may have occurred due to the inherent limitations of voice recognition software.
Discharge Plan
Departure
Patient Disposition: Home (Routine Discharge)
Date of Disposition: 01/08/25
Time of Disposition: 06:56
Patient with high blood pressure during this ER visit?: No
Discharge Problem:
Epistaxis, Chemo/ovarian CA
Instructions: Nosebleeds (DC)
Prescriptions:
No Action
cyanocobalamin (vitamin B-12) 100 mcg Tablet
100 mcg PO TUTHSA Qty: 0
cholecalciferol (vitamin D3) 25 mcg (1,000 unit) Tablet
25 mcg PO QPM Qty: 0
cetirizine [Zyrtec] 10 mg Tablet
10 mg PO QPM
therapeutic multivitamin Tablet
1 tab PO QPM
calcium carbonate [Calcium 600] 600 mg calcium (1,500 mg) Tablet
600 mg PO QPM
pravastatin 10 mg tablet
10 mg PO MOWEFR
letrozole 2.5 mg tablet
2.5 mg PO QPM
fluticasone propionate 50 mcg/actuation [place],Suspension
1 spray INTRANASAL DAILYPRN PRN (Reason: congestion)
ezetimibe 10 mg tablet
10 mg PO QPM
amoxicillin-pot clavulanate 875-125 mg tablet
1 tab PO Q12H Qty: 14 0RF
cephalexin 500 mg capsule
500 mg PO BID Qty: 13 0RF
Referrals:
Larissa Paez CRNP [Family Provider, General] - Follow up in 2-3 days
Naresh Livingston MD [Active, ENT] - Next open appointment
Interventions
Interventions:
*Risk Screen - Suicide Last Done: 01/08/25 05:32
*General Assessment Last Done: 01/08/25 06:12
*Neglect/Abuse Screening Last Done: 01/08/25 06:12
*ED- Fall Risk Assessment Last Done: 01/08/25 06:12
*ED COVID-19 Vaccine History Last Done: 01/08/25 06:13
*ED Influenza Vaccine History Last Done: 01/08/25 06:12
*Nursing Disposition Last Done: 01/08/25 07:01
ED-EENT Assessment Last Done: 01/08/25 06:00
Discharge Date and Time
Discharge Date/Time: 01/08/25 07:02
Print Language: ARMENIAN
[2025-01-08 06:39] LABS: Hematocrit 36.5 % (37.0-47.0); Hemoglobin 12.1 g/dL (12.0-16.0); Mean Corp Hgb Conc. 33.2 g/dL (33.0-37.0); Mean Corpuscular Volume 100.8 fL (81.0-99.0); Platelet Count 155 10^3/uL (130-400); Red Cell Dist. Width 14.4 % (11.5-14.5)
[2025-01-08 08:24] LABS: Anisocytosis 1+; Macrocytosis 1+; Normal RBC Morphology No; Platelets Checked Yes
[2025-01-08 08:25] LABS: Tear Drop Red Blood Cells Slight; Total Cells Counted 100
[2025-01-08 08:31] LABS: Absolute Neutrophils -Man Diff 0.2 10^3/uL (1.4-6.5)
== END 2025-01-08 07:02 | disposition home or self-care (01) ==
LOC: EMR 05:29
PROVIDERS: Emergency Medicine; EMERGENCY PHYSICIAN Emergency Medicine; FAMILY PHYSICIAN Nurse Practitioner Adult Health
DX: R04.0 Epistaxis (principal); C56.9 Malignant neoplasm of unspecified ovary; Z85.3 Personal history of malignant neoplasm of breast; Z90.13 Acquired absence of bilateral breasts and nipples; Z79.69 Long term (current) use of other immunomodulators and immunosuppressants
CPT/HCPCS: 30901; 99283; 85025

== ENCOUNTER → 2025-02-10 10:31 | Outpatient (REF) | payer MEDICARE, OTHER, SELFPAY | LOC: RAD 10:31 | PROVIDERS: ATTENDING PHYSICIAN Nurse Practitioner Adult Health | DX: M85.80 Other specified disorders of bone density and structure, unspecified site (principal); Z78.0 Asymptomatic menopausal state | CPT/HCPCS: 77080 ==

== ENCOUNTER 2025-03-06 15:02 | Emergency (ER) | payer MEDICARE, OTHER, SELFPAY ==
[2025-03-06 15:03] VITALS: BP 149/74
[2025-03-06 15:24] LABS: Hematocrit 33.8 % (37.0-47.0); Hemoglobin 11.0 g/dL (12.0-16.0); Mean Corp Hgb Conc. 32.5 g/dL (33.0-37.0); Mean Corpuscular Volume 102.7 fL (81.0-99.0); Nucleated Red Blood Cells % 0 %; Platelet Count 108 10^3/uL (130-400); Red Cell Dist. Width 16.0 % (11.5-14.5)
[2025-03-06 15:38] LABS: ALT (SGPT) 67 U/L (0-35); AST (SGOT) 59 U/L (14-36); Albumin 4.5 g/dl (3.5-5.0); Alkaline Phosphatase 119 U/L (38-126); Blood Urea Nitrogen 8 mg/dl (7-17); Calcium 9.0 mg/dl (8.4-10.2); Carbon Dioxide 25 mmol/L (22-30); Chloride 102 mmol/L (98-107); Glucose 107 mg/dl (70-99); Potassium 3.8 mmol/L (3.5-5.1); Sodium 135 mmol/L (135-145); Total Protein 7.3 g/dl (6.3-8.2); eGFR > 60.00
[2025-03-06 15:57] LABS: COVID-19 Antigen Negative (Negative)
--- NOTE | 2025-03-06 20:04 | ED.GENMED ---
History of Present Illness
General
Chief Complaint: Fever
Source: patient
Exam Limitations: none
Time Seen by Provider: 03/06/25 16:47
History of Present Illness
History of Present Illness:
70-year-old female with ovarian cancer currently getting chemotherapy presents with the onset of a cough yesterday. She also noted a fever at home. She was sick with similar symptoms over a week ago and received Zithromax and got much better
fairly quickly. No known sick contacts. She denies any vomiting. No chest pain. She denies shortness of breath. No other complaints
Past History
Past History
ED Past Medical History: Cancer (Breast cancer 2020 (bilateral mastectomy, letrozole). Ovarian cancer 2022 (chemo: Carboplatin, Paclaitaxel, Palonosetron. Surgery to follow)) and Other (seasonal allergies)
ED Past Surgical History: Other (Bilateral mastectomy)
Social History
Tobacco: Non-smoker
Alcohol: Other
Drug: None
Personal:
Living: with family
Employment: Other
Family History
Family History: Other
Phy Exam
Physical Exam
Physical Exam:
General: Well-developed female in no acute respiratory distress
HEENT: Normal cephalic atraumatic mucosa moist neck is supple
Heart: Regular rate and rhythm
Lungs: Clear no wheeze
Abdomen is soft nontender
Extremities: No cyanosis or edema
Course
Orders/Labs/Results
Orders:
Orders
03/06/25 15:08
CR Chest - 2 Views Urgent
Comment:
Reason For Exam: cough
03/06/25 15:18
COVID-19 Antigen Urgent
Source: Nasal Swab
Complete Blood Count/With Diff Urgent
Comprehensive Metabolic Panel Urgent
Influenza A+B Rapid Molecular Urgent
DAMIÁN Source: Nasal Swab
Specimen Description:
03/06/25 20:03
Acetaminophen [Tylenol] 1,000 mg PO NOW STA
Azithromycin [Zithromax] 500 mg PO NOW STA
Abnormal Lab Results
03/06/25
15:18
RBC 3.29 L 10^6/uL
(4.20-5.40)
Hgb 11.0 L g/dL
(12.0-16.0)
Hct 33.8 L %
(37.0-47.0)
MCV 102.7 H fL
(81.0-99.0)
MCH 33.4 H pg
(27.0-31.0)
MCHC 32.5 L g/dL
(33.0-37.0)
RDW 16.0 H %
(11.5-14.5)
Plt Count 108 L 10^3/uL
(130-400)
Absolute Lymphs (auto) 0.3 L 10^3/uL
(1.2-3.4)
Neutrophils % 89.5 H %
(42.2-75.2)
Lymphocytes % 4.0 L %
(20.5-51.1)
Glucose 107 H mg/dl
(70-99)
AST 59 H U/L
(14-36)
ALT 67 H U/L
(0-35)
03/06/25 15:18
03/06/25 15:18
Vital Signs
Initial and Last Documented VS:
Initial Vital Signs
Temp Pulse Resp BP Pulse Ox
100.2 F 104 20 149/74 98
03/06/25 15:03 03/06/25 15:03 03/06/25 15:03 03/06/25 15:03 03/06/25 15:03
Last Documented Vital Signs
Temp Pulse Resp BP Pulse Ox
101.2 F H 104 20 149/74 98
03/06/25 20:01 03/06/25 15:03 03/06/25 15:03 03/06/25 15:03 03/06/25 15:03
MDM/Problems Addressed
Differential Diagnosis Includes:
Patient with a fever. Temperature upon recheck in the room was 101.2. Otherwise vital signs are stable. She has a cough and was tested for COVID and flu both of these are negative. X-ray of the chest was ordered through triage which I personally
visualized and is negative. Could be underlying viral illness but given immunosuppression currently on chemo will cover for the potential for secondary bacterial involvement. She had success with Zithromax in the past. Will continue this. Had
discussion with patient and regarding treatment options including an admission versus treating her home. No overwhelming admission indication and patient would prefer to go home either way.
*Pulse Oximetry
SaO2: 98
Patient hypoxic: no
*Critical Care Note
Total Time (30-74mins, 75-104mins- exclusive of procedures): Not Applicable
ED Attending Note
-
Portions of this chart may have been created with voice recognition software.� Occasional wrong word or��sound alike� substitutions may have occurred due to the inherent limitations of voice recognition software.
Discharge Plan
Departure
Patient Disposition: Home (Routine Discharge)
Date of Disposition: 03/06/25
Time of Disposition: 20:08
Patient with high blood pressure during this ER visit?: No
Discharge Problem:
URI (upper respiratory infection)
Instructions: Fever, Adult (DC)
Prescriptions:
New
azithromycin [Zithromax] 250 mg tablet
250 mg PO DAILY 4 Days Qty: 4 0RF
No Action
cyanocobalamin (vitamin B-12) 100 mcg Tablet
100 mcg PO TUTHSA Qty: 0
cholecalciferol (vitamin D3) 25 mcg (1,000 unit) Tablet
25 mcg PO QPM Qty: 0
cetirizine [Zyrtec] 10 mg Tablet
10 mg PO QPM
therapeutic multivitamin Tablet
1 tab PO QPM
calcium carbonate [Calcium 600] 600 mg calcium (1,500 mg) Tablet
600 mg PO QPM
pravastatin 10 mg tablet
10 mg PO MOWEFR
letrozole 2.5 mg tablet
2.5 mg PO QPM
fluticasone propionate 50 mcg/actuation [place],Suspension
1 spray INTRANASAL DAILYPRN PRN (Reason: congestion)
ezetimibe 10 mg tablet
10 mg PO QPM
amoxicillin-pot clavulanate 875-125 mg tablet
1 tab PO Q12H Qty: 14 0RF
cephalexin 500 mg capsule
500 mg PO BID Qty: 13 0RF
Referrals:
Larissa Paez CRNP [Family Provider, General]
Activity Restrictions/Additional Instructions:
Lower lip continue with Tylenol or ibuprofen for fever. Drink plenty of fluids. Use Zithromax as directed. Return if worse otherwise
Interventions
Interventions:
*General Assessment Last Done: 03/06/25 15:03
*Neglect/Abuse Screening Last Done: 03/06/25 15:03
Discharge Date and Time
Print Language: [place]
[2025-03-06] MEDS: ZITHROMAX 500 MG PO (20:08)
[2025-03-06] MEDS: TYLENOL 1000 MG PO (20:08)
== END 2025-03-06 20:41 | disposition home or self-care (01) ==
LOC: EMR 15:02
PROVIDERS: Student in an Organized Health Care Education/Training Program; EMERGENCY PHYSICIAN Emergency Medicine; FAMILY PHYSICIAN Nurse Practitioner Adult Health
DX: J06.9 Acute upper respiratory infection, unspecified (principal); C56.9 Malignant neoplasm of unspecified ovary; Z85.3 Personal history of malignant neoplasm of breast; Z90.13 Acquired absence of bilateral breasts and nipples
CPT/HCPCS: 99283; 71046; 80053; 85025; 87502; 87811